=== PATIENT | male | born 1985 | race Caucasian/White ===

== ENCOUNTER 2024-10-12 21:26 | Emergency (ER) | payer BC, SELFPAY ==
[2024-10-12 21:28] VITALS: BP 126/86
--- NOTE | 2024-10-12 23:20 | ED.MUSCINJ ---
HPI-Injury
General
Chief Complaint: Musculo-Skeletal Complaint
Source: patient
Exam Limitations: none
Time Seen by Provider: 10/12/24 22:50
History of Present Illness-Injury
Initial Injury comments:
39-year-old mainly [place] male presents with crushing injury to right index finger he sustained today. He dropped a piece of plywood on his finger. He crushed his finger. Noted a laceration. Last tetanus updated within the last 2 to
3 years. He notes a throbbing and swollen sensation. No other this time
Phy Exam
Physical Exam
Physical Exam:
General: Well-appearing male no acute distress
Musculoskeletal exam: Right index finger swollen ecchymotic and tender over the distal portion. The DIP and PIP joints are without deformities
Skin 1 cm laceration distal portion right index finger starting at the nail and ranging volarly. There is a small amount of subungual hematoma.
Vascular: Brisk refill to distal index finger.
neuro: good sensation to right index finger.
Injury Course
Orders/Labs/Results
Orders:
Orders
10/12/24 21:32
CR Hand - Right Min 3 Views Urgent
Comment:
Reason For Exam: crush injury
MDM/Problems Addressed
Differential Diagnosis Includes:
Crushing injury right index finger with laceration. Concern for underlying fracture. X-rays of the right index finger were obtained which show slightly displaced avulsion fracture off the distal ulnar tuft of the distal phalanx. The finger was
copiously irrigated with saline and anesthetized in a local fashion using 1% lidocaine. Laceration was closed with 5-0 Prolene sutures in a simple erupted fashion. 3 sutures were required to do so. Will start on Keflex secondary to the potential
open fracture. A bulky dressing was applied stable for discharge
*Critical Care Note
Total Time (30-74mins, 75-104mins- exclusive of procedures): Not Applicable
ED Attending Note
-
Portions of this chart may have been created with voice recognition software.� Occasional wrong word or��sound alike� substitutions may have occurred due to the inherent limitations of voice recognition software.
Discharge Plan
Departure
Patient Disposition: Home (Routine Discharge)
Date of Disposition: 10/12/24
Time of Disposition: 23:25
Patient with high blood pressure during this ER visit?: No
Discharge Problem:
Laceration, Finger fracture, right
Instructions: Muscle and Bone Pain (DC)
Prescriptions:
New
cephalexin 500 mg capsule
500 mg PO TID 7 Days Qty: 21 0RF
Referrals:
Carlos Sena MD [Active] -
Jesse Guzman MD [Family Provider] -
Activity Restrictions/Additional Instructions:
Elevate for swelling. You may use ibuprofen or Tylenol for pain. Take antibiotic as directed. Have sutures removed in 10 to 14 days. Follow-up with orthopedics otherwise
Interventions
Interventions:
*Risk Screen - Suicide Last Done: 10/12/24 21:28
*General Assessment Last Done: 10/12/24 21:28
*Neglect/Abuse Screening Last Done: 10/12/24 21:28
ED-Musculoskeletal Assessment Last Done: 10/12/24 22:32
Discharge Date and Time
Print Language: YI
[2024-10-12] MEDS: KEFLEX 500 MG PO (23:37)
[2024-10-12 23:39] VITALS: BP 128/86
== END 2024-10-12 23:41 | disposition home or self-care (01) ==
LOC: EMR 21:26
PROVIDERS: EMERGENCY PHYSICIAN Emergency Medicine; FAMILY PHYSICIAN Internal Medicine
DX: S62.660B Nondisplaced fracture of distal phalanx of right index finger, initial encounter for open fracture (principal); W20.8XXA Other cause of strike by thrown, projected or falling object, initial encounter
CPT/HCPCS: 99283; 12001; 73130

== ENCOUNTER 2025-05-04 11:28 | Emergency (ER) | payer BC, SELFPAY ==
[2025-05-04 11:49] VITALS: BP 117/69
--- NOTE | 2025-05-04 13:53 | ED.GENMED ---
History of Present Illness
General
Chief Complaint: Musculo-Skeletal Complaint
Time Seen by Provider: 05/04/25 13:52
History of Present Illness
History of Present Illness:
PAST MEDICAL HISTORY AND REVIEW OF OLD RECORDS
- The patient has had a concussion in the past. I reviewed records, the patient was seen here in October with a finger fracture.
Note:
CHIEF COMPLAINT(S)
Right knee pain following a sudden popping sound.
HISTORY OF PRESENT ILLNESS
The patient is a 39-year-old male who presented with acute left knee pain. According to the patient, the pain began suddenly while he was walking, accompanied by a popping sensation in the knee that caused him to fall. The onset of the pain was
immediate, and since then, any attempt to bend the knee has resulted in severe pain. The patient denied any specific trauma to the knee prior to the incident. He reports significant difficulty with walking due to the knee pain. On examination, there
was visible swelling of the knee.
PHYSICAL EXAM
General: Alert, no acute distress.
Skin: Warm, dry.
Head: Normocephalic, atraumatic.
Neck: Supple, trachea midline.
Eyes, Ears, Nose, Mouth, and Throat: Oral mucosa moist.
Cardiovascular: Normal peripheral perfusion, No edema.
Respiratory: Respirations are non-labored.
Gastrointestinal: Abdomen nondistended.
Back: Normal range of motion, Normal alignment.
Musculoskeletal: Left knee shows visible swelling; markedly decreased active range of motion of the flexion, I can palpate the quadriceps and patellar tendons, patient could not tolerate drawer testing patient experiences severe pain with attempts
to bend. The quadriceps and patellar tendons are intact on palpation with no evidence of rupture.
Neurological: Alert and oriented to person, place, time, and situation, No focal neurological deficit observed.
Psychiatric: Cooperative, appropriate mood & affect.
PLAN
- An offer was made to the patient for therapeutic arthrocentesis to potentially alleviate pain by aspirating fluid from the knee joint if desired by the patient. The procedure includes local numbing with lidocaine prior to insertion of a larger
needle for aspiration.
- Recommendation for follow-up with an technical service specialist to further evaluate the knee, potentially for additional interventions like arthrocentesis or other treatments as an outpatient.
- Suggestion for a knee immobilizer to aid in supporting and reducing movement, enhancing comfort during ambulation.
DIFFERENTIAL DIAGNOSIS
The Differential Diagnosis includes, in no particular order and is not limited to:
- Meniscal tear
- Ligamentous sprain or tear (such as ACL, PCL, MCL, or LCL injury)
- Patellar dislocation
- Knee osteoarthritis exacerbation
- Popliteal cyst rupture
- Tendonitis or bursitis
- Intra-articular fracture
- Infection or septic arthritis
- Synovitis
- Hemarthrosis
RADIOLOGY
- X-ray of left knee shows a moderate suprapatellar joint effusion with no underlying bony injury
LABS
- 17,000 white cells, of note the fluid was grossly bloody crystal analysis still pending
UPDATE
- With assistance of Jayy Butler, approximately 60 mL of blood was returned.
SUMMARY OF ENCOUNTER
The patient was seen in the emergency department for acute right knee pain following a sudden popping sound experienced while walking. On examination, visible swelling was noted in the right knee. An offer for therapeutic arthrocentesis was made to
relieve the pain by aspirating fluid. After the procedure, the patient reported some improvement. To further assist, an I.M. dose of ketorolac (Toradol) was administered. A knee immobilizer was applied for support and to aid in ambulation.
MANAGEMENT OF THE PATIENTS CARE WAS DISCUSSED WITH
Case discussed with Dr. Parish, who suggested the possibility of an ACL issue or patellar instability.
PLAN
Follow-up with an technical service specialist for further evaluation of the knee and potential need for additional interventions such as an MRI if symptoms persist.
PATIENT EDUCATION AND COUNSELING
The patient was informed about the possibility of ACL issues or patellar instability. Emphasis was made on following up with orthopedics. The need for MRI was explained, but it was noted that no clear indication exists at this time.
FOLLOW-UP INSTRUCTIONS
Schedule a follow-up appointment with orthopedics as an outpatient for further evaluation.
MEDICATION RECONCILIATION
Administered one dose of intramuscular ketorolac (Toradol).
MEDICAL DECISION MAKING
-Complexity of Data Reviewed: Differential diagnosis includes meniscal tear, ligamentous sprain or tear, patellar dislocation, knee osteoarthritis exacerbation, popliteal cyst rupture, tendonitis or bursitis, intra-articular fracture, infection or
septic arthritis, synovitis, and hemarthrosis.
-Data:
Category 1: No indication for MRI at this time, but may consider based on symptom persistence.
Category 3: Discussion of management with Dr. Miller.
DIAGNOSIS
- Left knee hemarthrosis
Phy Exam
Physical Exam
Physical Exam:
See HPI
Course
Orders/Labs/Results
Orders:
Orders
05/04/25 11:52
CR Knee - Left 4 Or More View* Urgent
Comment:
Reason For Exam: Pain while walking, can't bear weight
05/04/25 14:30
Body Fluid Cell Count Urgent
What is the Body Fluid: joint
Date Specimen was Collected: 05/04/25
Time Specimen was Collected: 14:29
Comment: with DIFF
Body Fluid Crystals Urgent
What is the Body Fluid: joint
Date Specimen was Collected: 05/04/25
Time Specimen was Collected: 14:29
Fluid Culture with Gram Stain Urgent
VALDO Source: Joint Fluid
Specimen Description:
Date Specimen was Collected: 05/04/25
Time Specimen was Collected: 14:29
05/04/25 14:35
Knee Immobilizer Left-Treatmen ONCE
05/04/25 15:03
Ketorolac [Toradol] 30 mg IM NOW STA
05/04/25 15:13
Crutches-Treatment ONCE
Vital Signs
Initial and Last Documented VS:
Initial Vital Signs
Temp Pulse Resp BP Pulse Ox
37.2 C 94 16 117/69 99
05/04/25 11:49 05/04/25 11:49 05/04/25 11:49 05/04/25 11:49 05/04/25 11:49
Last Documented Vital Signs
Temp Pulse Resp BP Pulse Ox
37.2 C 79 20 119/74 99
05/04/25 11:49 05/04/25 15:28 05/04/25 15:28 05/04/25 15:28 05/04/25 15:28
Procedures
Incision/Drainage/Joint Aspiration
Left Knee:
Anethesia: 1% Lidocaine
Preparation: cleaned with Betadine
Type of procedure: drain and aspiration
Description of abscess: greater than 3cm
How much fluid was obtained?: number in mls (60ml)
Fluid description: bloody
Treatment: bandaid applied
*Pulse Oximetry
SaO2: 99
Oxygen Mode of Delivery: Room air
Patient hypoxic: no
*Critical Care Note
Total Time (30-74mins, 75-104mins- exclusive of procedures): Not Applicable
ED Attending Note
-
Portions of this chart may have been created with voice recognition software.� Occasional wrong word or��sound alike� substitutions may have occurred due to the inherent limitations of voice recognition software.
Discharge Plan
Departure
Patient Disposition: Home (Routine Discharge)
Date of Disposition: 05/04/25
Time of Disposition: 15:02
Patient with high blood pressure during this ER visit?: Yes
Discharge Problem:
Hemarthrosis
Instructions: Knee Immobilizer (DC), Knee Pain (DC)
Prescriptions:
New
oxycodone-acetaminophen [Percocet] 5-325 mg tablet
1 - 2 tab PO Q8H PRN (Reason: Pain) Qty: 12 0RF
No Action
cephalexin 500 mg capsule
500 mg PO TID 7 Days Qty: 21 0RF
Referrals:
Jesse Guzman MD [Family Provider, Internal Medicine]
Martinez Parish MD [Active, Orthopedics]
Stand Alone Forms: Return to Work
Activity Restrictions/Additional Instructions:
When there was blood in the joint, it is called a 'hemarthrosis'. We did drain about 60 mL of bloody fluid. I notified the orthopedist, Dr. Parish who thought maybe there could be an issue with the ACL versus patellar instability. They can
consider doing an MRI as an outpatient. Call their office tomorrow to arrange follow-up. I am sending a prescription for narcotic to your pharmacy if the pain is severe. I recommend 3-4 lbnt-mal-kkaeqnk ibuprofen (Motrin) every 8 hours with food
for a few days. Return here if worse.
Interventions
Interventions:
*Risk Screen - Suicide Last Done: 05/04/25 14:00
*General Assessment Last Done: 05/04/25 14:00
*Neglect/Abuse Screening Last Done: 05/04/25 14:00
*ED COVID-19 Vaccine History Last Done: 05/04/25 14:00
*Nursing Disposition Last Done: 05/04/25 15:28
ED-Musculoskeletal Assessment Last Done: 05/04/25 14:00
Discharge Date and Time
Discharge Date/Time: 05/04/25 15:29
Print Language: [id number]
[2025-05-04 14:00] VITALS: BP 122/69
[2025-05-04 15:14] LABS: Body Fluid Second Tech EYM
[2025-05-04] MEDS: TORADOL 30 MG IM (15:14)
[2025-05-04 15:28] VITALS: BP 119/74
== END 2025-05-04 15:29 | disposition home or self-care (01) ==
LOC: EMR 11:28
PROVIDERS: EMERGENCY PHYSICIAN Emergency Medicine; FAMILY PHYSICIAN Internal Medicine
DX: M25.062 Hemarthrosis, left knee (principal)
CPT/HCPCS: 99284; 96372; 20610; 73564; 87015; 87070; 87205; 89051; 89060